=== PATIENT | female | born 1965 ===

== ENCOUNTER 2025-04-04 11:00 | Inpatient (IN) | payer OTHER ==
[~2025-04-04] VITALS: Ht 162.6 cm; Wt 123.8 kg
[2025-04-04] MEDS ORDERED: ENALAPRIL MALEA10 MG PO (13:31)
[2025-04-04] MEDS ORDERED: BUSPIRONE HCL15 MG PO (13:31)
[2025-04-04] MEDS ORDERED: CYMBALTA60 MG PO (13:32)
[2025-04-04] MEDS ORDERED: PAXIL20 MG PO (13:32)
[2025-04-10] MEDS ORDERED: BUPIVACAINE HCL/MPF 0.5% 30ML VIAL ONE (07:14)
[2025-04-10] MEDS ORDERED: LIDOCAINE HCL 1%/EPINEPHRINE 20ML VIAL IJ ONE (07:15)
[2025-04-10] MEDS ORDERED: METRONIDAZOLE/SODIUM CHLORIDE 500 MG/100 ML PIGGYBACK IV ONE (07:15)
[2025-04-10] MEDS ORDERED: CEFTRIAXONE SODIUM 2,000 MG VIAL ONE (07:15)
[2025-04-10] MEDS ORDERED: DEXTROSE 50 % IN WATER 0.5 G/ML VIAL IV PRN (08:00)
[2025-04-10] MEDS ORDERED: MORPHINE SULFATE 4 MG/ML CARTRIDGE IV PRN (08:00)
[2025-04-10] MEDS ORDERED: ONDANSETRON HCL 2 MG/ML VIAL IV PRN (08:00)
[2025-04-10] MEDS ORDERED: OxyCODONE HCL 5 MG TABLET (ROXICODONE) PO PRN (08:00)
[2025-04-10] MEDS ORDERED: RINGERS SOLUTION,LACTATED 1,000 ML IV SCH (08:00)
[2025-04-10] MEDS ORDERED: ACETAMINOPHEN 500 MG GEL..CAP PO SCH (08:00)
[2025-04-10] MEDS ORDERED: SUGAMMADEX SODIUM 200 MG/2 ML VIAL IV ONE (09:00)
[2025-04-10] MEDS ORDERED: GABAPENTIN 300 MG CAPSULE PO SCH (09:00)
[2025-04-10] MEDS ORDERED: FAMOTIDINE/PF 20 MG/2 ML VIAL IV PUSH SCH (09:00)
[2025-04-10] MEDS ORDERED: MORPHINE SULFATE 4 MG/ML VIAL IV ONE ×2 (10:20→11:05)
[2025-04-10] MEDS ORDERED: ENALAPRILAT DIHYDRATE 1.25 MG/ML VIAL IV PRN (10:45)
[2025-04-10] MEDS ORDERED: ALBUTEROL SULFATE 3 ML/2.5 MG AMPUL.NEB IH SCH (12:00)
[2025-04-10 12:25] LABS: BASO % 0.1 % (0.1-1.2); EOS # 0.01 (0.04-0.54); EOS % 0.1 % (0.7-7.0); HEMATOCRIT 40.2 % (34.1-44.9); HEMOGLOBIN 12.2 g/dL (11.2-15.7); LYMPH # 0.77 (1.18-3.74); LYMPH % 8.8 % (19.3-53.1); MEAN CORPUSCULAR HEMOGLOBIN 24.6 pg (25.6-32.2); MONO # 0.53 (0.24-0.82); MONO % 6.1 % (4.7-12.5); NEUT % 84.4 % (34.0-71.1); PLATELET COUNT 304 K/uL (163-369); RED BLOOD COUNT 4.95 M/uL (3.93-5.22); RED CELL DISTRIBUTION WIDTH 19.9 % (11.6-14.4)
[2025-04-10 13:15] VITALS: BP 112/68; O2SAT 99
[2025-04-10 13:56] LABS: ALBUMIN 3.3 gm/dL (3.4-5.0); CREATININE SERUM 0.59 mg/dL (0.55-1.02); GFR 104.32; MAGNESIUM 2.2 mg/dL (1.8-2.4); PHOSPHOROUS 3.5 mg/dL (2.5-4.9); POTASSIUM 4.34 mEq/L (3.5-5.1)
[2025-04-10] MEDS ORDERED: POLYETHYLENE GLYCOL 3350 17 GM BLIST.PACK PO SCH (17:00)
[2025-04-10 22:30] VITALS: O2SAT 99
[2025-04-11 00:48] VITALS: O2SAT 99
[2025-04-11 00:56] VITALS: BP 105/64; O2SAT 98
[2025-04-11 06:19] LABS: BASO % 0.2 % (0.1-1.2); EOS # 0.01 (0.04-0.54); EOS % 0.1 % (0.7-7.0); HEMATOCRIT 35.9 % (34.1-44.9); LYMPH # 0.74 (1.18-3.74); LYMPH % 7.1 % (19.3-53.1); MEAN CORPUSCULAR HEMOGLOBIN 24.8 pg (25.6-32.2); MONO # 0.86 (0.24-0.82); MONO % 8.2 % (4.7-12.5); NEUT % 84.2 % (34.0-71.1); PLATELET COUNT 276 K/uL (163-369); RED BLOOD COUNT 4.43 M/uL (3.93-5.22); RED CELL DISTRIBUTION WIDTH 19.6 % (11.6-14.4)
[2025-04-11 08:38] LABS: ALBUMIN 2.7 gm/dL (3.4-5.0); CALCIUM 8.7 mg/dL (8.5-10.1); CREATININE SERUM 0.61 mg/dL (0.55-1.02); GFR 100.39; PHOSPHOROUS 3.1 mg/dL (2.5-4.9)
[2025-04-11 08:43] VITALS: BP 132/62; O2SAT 95
[2025-04-11] MEDS ORDERED: PAROXETINE HCL 20 MG TABLET PO SCH (09:00)
[2025-04-11] MEDS ORDERED: BUSPIRONE HCL 15 MG TABLET PO SCH (09:00)
[2025-04-11] MEDS ORDERED: ENALAPRIL MALEATE 10 MG TABLET PO SCH (09:00)
[2025-04-11] MEDS ORDERED: Duloxetine HCl 60 MG CAPSULE.DR PO SCH (09:00)
[2025-04-11 09:56] VITALS: O2SAT 90
[2025-04-11 12:20] LABS: POTASSIUM 4.39 mEq/L (3.5-5.1)
[2025-04-11 16:00] VITALS: BP 99/71; O2SAT 96
[2025-04-11] MEDS ORDERED: ENOXAPARIN SODIUM 40 MG/0.4 ML SYRINGE SUBCUTANEO SCH (17:00)
[2025-04-12 01:20] VITALS: BP 128/79; O2SAT 98
[2025-04-12 07:13] LABS: BASO % 0.2 % (0.1-1.2); EOS # 0.04 (0.04-0.54); EOS % 0.4 % (0.7-7.0); HEMATOCRIT 36.9 % (34.1-44.9); HEMOGLOBIN 11.2 g/dL (11.2-15.7); LYMPH # 0.71 (1.18-3.74); LYMPH % 7.1 % (19.3-53.1); MEAN CORPUSCULAR HEMOGLOBIN 24.6 pg (25.6-32.2); PLATELET COUNT 299 K/uL (163-369); RED BLOOD COUNT 4.55 M/uL (3.93-5.22); RED CELL DISTRIBUTION WIDTH 19.9 % (11.6-14.4)
[2025-04-12 08:22] LABS: CALCIUM 8.8 mg/dL (8.5-10.1); CREATININE SERUM 0.67 mg/dL (0.55-1.02); GFR 90.09; MAGNESIUM 1.9 mg/dL (1.8-2.4); PHOSPHOROUS 2.4 mg/dL (2.5-4.9); POTASSIUM 4.04 mEq/L (3.5-5.1)
[2025-04-12 08:50] VITALS: BP 116/74; O2SAT 96
[2025-04-12] MEDS ORDERED: ENOXAPARIN SODIUM 40 MG/0.4 ML SYRINGE SUBCUTANEO SCH (09:00)
[2025-04-12] MEDS ORDERED: POTASSIUM PHOS,M-BASIC-D-BASIC 3 MM/ML VIAL IV NR (09:45)
[2025-04-12 17:00] VITALS: BP 135/86; O2SAT 97
[2025-04-13] VITALS: BP 152/97; O2SAT 96
[2025-04-13 08:00] VITALS: BP 145/88; O2SAT 98
[2025-04-13 09:26] LABS: BASO % 0.1 % (0.1-1.2); EOS # 0.01 (0.04-0.54); EOS % 0.1 % (0.7-7.0); HEMATOCRIT 41.3 % (34.1-44.9); HEMOGLOBIN 12.6 g/dL (11.2-15.7); LYMPH % 8.2 % (19.3-53.1); MEAN CORPUSCULAR HEMOGLOBIN 24.9 pg (25.6-32.2); MONO # 0.75 (0.24-0.82); MONO % 6.9 % (4.7-12.5); NEUT # 9.23 (1.56-6.13); NEUT % 84.3 % (34.0-71.1); PLATELET COUNT 380 K/uL (163-369); RED BLOOD COUNT 5.07 M/uL (3.93-5.22); RED CELL DISTRIBUTION WIDTH 19.9 % (11.6-14.4)
[2025-04-13 10:35] LABS: CALCIUM 9.3 mg/dL (8.5-10.1); CREATININE SERUM 0.47 mg/dL (0.55-1.02); GFR 135.63; MAGNESIUM 2.2 mg/dL (1.8-2.4); PHOSPHOROUS 3.4 mg/dL (2.5-4.9); POTASSIUM 4.69 mEq/L (3.5-5.1)
[2025-04-13] MEDS ORDERED: ALBUTEROL SULFATE 3 ML/2.5 MG AMPUL.NEB IH SCH (13:00)
[2025-04-13] MEDS ORDERED: MORPHINE SULFATE 4 MG/ML CARTRIDGE IV PRN (14:15)
[2025-04-13 16:37] VITALS: BP 147/87; O2SAT 95
[2025-04-14 01:07] VITALS: BP 117/82; O2SAT 97
[2025-04-14 07:58] LABS: BASO % 0.2 % (0.1-1.2); EOS # 0.09 (0.04-0.54); HEMATOCRIT 36.9 % (34.1-44.9); HEMOGLOBIN 11.5 g/dL (11.2-15.7); LYMPH # 1.24 (1.18-3.74); LYMPH % 27.8 % (19.3-53.1); MEAN CORPUSCULAR HEMOGLOBIN 25.1 pg (25.6-32.2); MONO # 0.82 (0.24-0.82); NEUT # 2.28 (1.56-6.13); NEUT % 51.2 % (34.0-71.1); PLATELET COUNT 388 K/uL (163-369); RED BLOOD COUNT 4.58 M/uL (3.93-5.22); RED CELL DISTRIBUTION WIDTH 19.9 % (11.6-14.4)
[2025-04-14 08:18] LABS: MONO % 18.4 % (4.7-12.5)
[2025-04-14 08:21] LABS: CREATININE SERUM 0.5 mg/dL (0.55-1.02); GFR 126.28; PHOSPHOROUS 3.4 mg/dL (2.5-4.9); POTASSIUM 4.34 mEq/L (3.5-5.1)
[2025-04-14 08:44] VITALS: BP 157/85; O2SAT 95
[2025-04-14 17:49] VITALS: BP 142/72; O2SAT 100
[2025-04-15 00:31] VITALS: BP 138/81; O2SAT 97
[2025-04-15 08:37] VITALS: BP 153/83; O2SAT 100
[2025-04-15] MEDS ORDERED: TYLENOL ARTHRI650 MG PO (14:16)
[2025-04-15] MEDS ORDERED: INTESTINEX680 M1 PO (14:16)
[2025-04-15] MEDS ORDERED: NEURONTIN300 MG PO (14:16)
[2025-04-15] MEDS ORDERED: PRILOSEC OTC20 MG PO (14:16)
== END 2025-04-15 15:48 | disposition home or self-care (01) | DRG 330 ==
LOC: SURH 04-10 06:57 → O/R 04-10 06:57 → SURH 04-10 07:00
PROVIDERS: Internal Medicine Geriatric Medicine; ADMIT Surgery; ATTEND Surgery
PROC: 07BB4ZZ Excision of Mesenteric Lymphatic, Percutaneous Endoscopic Approach (ICD-10-PCS; 2025-04-10)
PROC: 4A12X4Z Monitoring of Cardiac Electrical Activity, External Approach (ICD-10-PCS; 2025-04-10)
PROC: 0DTF4ZZ Resection of Right Large Intestine, Percutaneous Endoscopic Approach (ICD-10-PCS; principal; 2025-04-10 07:00)
DX: D37.4 Neoplasm of uncertain behavior of colon (principal); K56.7 Ileus, unspecified; K91.89 Other postprocedural complications and disorders of digestive system; K92.1 Melena; K57.30 Diverticulosis of large intestine without perforation or abscess without bleeding; R59.0 Localized enlarged lymph nodes; K63.89 Other specified diseases of intestine

== ENCOUNTER → 2025-04-05 12:09 | Outpatient (CLI) | payer OTHER ==
[~2025-04-05 12:09] MED LIST: BUSPIRONE HCL15 MG PO; CYMBALTA60 MG PO; ENALAPRIL MALEA10 MG PO; PAXIL20 MG PO
[2025-04-05 13:48] LABS: INR 1.08; PARTIAL THROMBOPLASTIN TIME 29.6 SECONDS (22.0-34.0); PROTHROMBIN TIME 11.7 SECONDS (9.0-11.5)
== END | disposition home or self-care (01) ==
LOC: LAB 12:09
PROVIDERS: ATTEND Internal Medicine Geriatric Medicine
DX: D64.9 Anemia, unspecified (principal); D68.9 Coagulation defect, unspecified